=== PATIENT | female | born 1990 | race Caucasian/White ===

== ENCOUNTER → 2019-09-04 11:24 | Outpatient (CLI) | payer OTHER, SELFPAY ==
[2019-09-04 11:07] VITALS: BMI 25.9
--- NOTE | 2019-09-04 11:25 | RAD_ITS ---
STUDY: X-RAY - CERVICAL SPINE REASON FOR EXAM: Female, 28 years old. Neck pain TECHNIQUE: 5 view(s) of the cervical spine were obtained. COMPARISON: None FINDINGS: Normal anterior atlantoaxial articulation. Normal odontoid process. Normal cervical lordosis. Normal vertebral bodies and endplates. Normal disc space heights. Normal visualized intervertebral neuroforamina. The soft tissue structures are unremarkable. There is no demonstrated fracture of the cervical spine. RAD/Cerv Spine 4 or 5 Views IMPRESSION: Normal x-ray examination of the visualized cervical spine. Electronically Signed: Quirino Leonard MD at 11:43 EDT , Service support ,
== END ==
PROVIDERS: PCP Internal Medicine; Referring Provider Physician Assistant; Visit Provider Physician Assistant
DX: S16.1XXA Strain of muscle, fascia and tendon at neck level, initial encounter (principal); M54.12 Radiculopathy, cervical region
CPT/HCPCS: 72050

== ENCOUNTER 2019-09-18 08:56 | Outpatient (RCR) | payer OTHER, SELFPAY ==
[2019-09-04 11:07] VITALS: BMI 25.9
--- NOTE | 2019-09-18 15:05 | HP.PTEVAL ---
Patient's Visit Information AILYN RUSHING is a 28 year old F referred to Physical Therapy by CHAN Talley with a diagnosis of CERVICAL STRAIN,CERVICAL RADICULOPATHY,TRAPEZIUS/HAND STRAIN,EPICONDYLITIS. Date of Evaluation: 09/18/19 Physical Therapist: Dale Coleman, PT, Cert MDT, OCS - Visit Plan Frequency: 3x /Week Duration: 4 Weeks Plan: PT INTERVENTIONS MODALTIES PAIN RELIEVIE NEEDED,CERVICAL POSTURAL EX'S ,VERONICA EX'S ,RTIGHT RTC/SCAPULAR STRENGTHENING,MANUAL THERAPY - Subjective Subjective: This 28 y/o female presenst to physical therapy with cervical strain,cervical radiculopathy ,trapezius strain ,right lateral epicondlylitis and hand strain. Patient injuryed at work 08/29/19 on left side of bed on side rails and grabbed patient lifting underarms with patient weighing 300 #'s caused increase pain right neck arm. Patient went to [facility] cervical spine - and recommended ibrophrin and predisone 7 days.. Location right shoulder and cervical spine UT.Pateint symptoms hand and elbow feeling better but increase with activity.Intially had parathesia in fingers but better.If overuse shoulder burning . Patient has RICO,denies tinnutus/nausea. Patient has difficulty sleeping uncomfortable. Pain is described as ache. Aggraveting lifting ,flexion cervical spine ,siting,some driving ,housework tasks and job demands. 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 Patient symptoms affect QOL and job demands. Patient symptoms QOL. SOCIAL: single 1children. VOCATION: [employer] LOC[employer]NA[employer] - Pain Right Neck Pain Intensity (Out of 10): 4 Pain Intensity Range: 10 Bilateral Shoulder Pain Intensity (Out of 10): 4 Pain Intensity Range: 10 - Objective POSTURE: mild foward posture. PALAPTION: tender anterior AC ligaments ,long head bicep. NEURO: denies parathesia/tingling,reflexes 2/3 C5-6-7. CERVICAL ROM: flexion min loss ,extension min loss,lateral flexion/rotation min loss ,retraction min loss pain scapular,protrusion WFL. AROM: shoulder flexion/abduction 170 degrees,ER 90 ,IR T11,patient has popping right shoulder with certain movements. MMT: RTC 4-/5,DELTOID 4-/5,biceps 4/5,triceps 4/5,wrist flexors /extensors 4/5. SOFTWARE [employer] STRENGTH: 40# R ,L 50# - Special Tests C/S Radiculapathy - Left Upper limb tension test: Negative C/S Radiculapathy - Right Upper limb tension test: Negative C/S Radiculapathy - Left Spurlings: Negative C/S Radiculapathy - Right Spurlings: Positive C/S Radiculapathy - Left Cervical distraction: Negative C/S Radiculapathy - Right Cervical distraction: Negative C/S Radiculapathy - Left Relief test: Negative C/S Radiculapathy - Right Relief test: Negative Sharp Claudia: Negative Vertebral Artery Test: Negative Alar Ligament Test: Negative Cervical Sitting: Protrusion - Mechanical Response: No effect Cervical Sitting: Protrusion - Symptoms During Testing: No effect Cervical Sitting: Protrusion - Symptoms After Testing: No effect Cervical Sitting: Retraction - Mechanical Response: No effect Cervical Sitting: Retraction - Symptoms During Testing: Increases Cervical Sitting: Retraction - Symptoms After Testing: No worse Cervical Sitting: Retraction-Extension - Mechanical Response: No effect Cerv Sitting: Retraction-Extension - Symptoms During Testing: Increases Cerv Sitting: Retraction-Extension - Symptoms After Testing: No worse Cervical Sitting: Sidebend Right - Mechanical Response: No effect Cervical Sitting: Sidebend Right - Symptoms During Testing: No effect Cervical Sitting: Sidebend Right - Symptoms After Testing: No effect Comments:: STRETCHING Cervical Sitting: Sidebend Left - Mechanical Response: No effect Cervical Sitting: Sidebend Left - Symptoms During Testing: No effect Cervical Sitting: Sidebend Left - Symptoms After Testing: No effect Comments:: STRETCHING Cervical Sitting: Rotation Right - Mechanical Response: No effect Cervical Sitting: Rotation Right - Symptoms During Testing: No effect Cervical Sitting: Rotation Right - Symptoms After Testing: No effect Cervical Sitting: Rotation Left - Mechanical Response: No effect Cervical Sitting: Rotation Left - Symptoms During Testing: No effect Cervical Sitting: Rotation Left - Symptoms After Testing: No effect Cervical Sitting: Flexion - Mechanical Response: No effect Cervical Sitting: Flexion - Symptoms During Testing: No effect Cervical Sitting: Flexion - Symptoms After Testing: No effect R Shoulder External Rotation Lag Test - RC Tear: Negative R Shoulder Supine Impingement Test - RC Tear: Negative R Shoulder Drop Sign - IS Test: Positive R Shoulder Empty Can - SS: Positive R Shoulder Belly Press - SupScap: Negative R Shoulder Neer - Impingement: Negative R Shoulder Cardenas Dontae - Impingement: Positive R Shoulder Biceps Load Test - Labrum: Negative R Shoulder Apprehension Test - Anterior Instability: Negative R Shoulder Speeds Test - Labrum/Biceps: Negative - Goals Goal 1:: Independant with HEP Goal Time Frame: 4-6 Weeks Goal 2:: Improve posture for job demands Goal Time Frame: 4-6 Weeks Goal 3:: Decrease right shoulder and neck pain by 50% or> to improve functionm and job demands. Goal Time Frame: 4-6 Weeks Goal 4:: Patient increase strength of right shoulder by 4/5 to improve function and RTW Goal Time Frame: 4-6 Weeks Goal 5:: Patient improve neck owestry score by 5 points or > to RTW and QOL. Goal Time Frame: 4-6 Weeks - Rehabilitation Potential Physical Therapy Diagnosis: This patient injuried right shoulder ,arm and cervical spine lifting a patient that was got in rail caused pain cervical spine and right shoulder with weakness right shoulder ,decrease ROM cervical impairs ability to peform job demands and and housework tasks ,lateral elboe and hand improving Rehabilitation Potential: Good - Anticipated Interventions Patient/Client Instruction: Educate patient on: Condition, Plan of Care For the Purpose of:: To decrease pain, To increase ROM, To improve muscle performance and motor function, To improve ability to perform ADL's, To increase tolerance to activity/condition/position, To improve performance and independence with ADL's, To improve ability of physical actions for home/community/work/leisure, To improve health of tissue, To decrease soft tissue restriction, To increase flexibility/ROM, To reduce risk of recurrence Therapeutic Exercise to Include: Strength training, Postural training, Flexibilty training, Active ROM, Veronica Exercises, Scapular Strength/Stabilization Comment: RTC For the Purpose of:: To decrease pain, To increase ROM, To improve muscle performance and motor function, To improve ability to perform ADL's, To increase tolerance to activity/condition/position, To improve ability of physical actions for home/community/work/leisure, To decrease soft tissue restriction, To increase flexibility/ROM, To reduce risk of recurrence, To improve ability to perform tasks related to life management TENS: Yes IF ES: Yes Cryotherapy (ice pack, ice massage): Yes Thermo therapy (hot pack): Yes Ultrasound (thermal/non thermal): Yes For the Purpose of:: To decrease pain, To decrease swelling/inflammation, To improve nutrient delivery to tissue, To increase oxygenation perfusion, To improve health of tissue, To decrease soft tissue restriction, To increase flexibility/ROM Thank you for the opportunity to evaluate your patient. For Medicare and Medicare HMO plans, please review the plan of care and approve it. It will need to be FAXED BACK to us at [phone] for Medicare purposes. For Medicare only, by signing this I certify the plan of care. Please let me know if there are questions or concerns regarding this plan of care. Physician Signature: Date:
--- NOTE | 2019-10-25 13:59 | HP.PTDCNRP_ITS ---
AILYN RUSHING was seen in my office for initial evaluation on 09/18/19. The following Plan of Care was established for this patient: Initial Frequency: 3x /Week Initial Duration: 4 Weeks Patient/Client Instruction: Educate patient on: Condition, Plan of Care For the Purpose of:: To decrease pain, To increase ROM, To improve muscle performance and motor function, To improve ability to perform ADL's, To increase tolerance to activity/condition/position, To improve performance and independence with ADL's, To improve ability of physical actions for home/community/work/leisure, To improve health of tissue, To decrease soft tissue restriction, To increase flexibility/ROM, To reduce risk of recurrence Therapeutic Exercise to Include: Strength training, Postural training, Flexibilty training, Active ROM, James Exercises, Scapular Strength/Stabiliz ation For the Purpose of:: To decrease pain, To increase ROM, To improve muscle performance and motor function, To improve ability to perform ADL's, To increase tolerance to activity/condition/position, To improve ability of physical actions for home/community/work/leisure, To decrease soft tissue restriction, To increase flexibility/ROM, To reduce risk of recurrence, To improve ability to perform tasks related to life management TENS: Yes IF ES: Yes Cryotherapy (ice pack, ice massage): Yes Thermo therapy (hot pack): Yes Ultrasound (thermal/non thermal): Yes For the Purpose of:: To decrease pain, To decrease swelling/inflammation, To improve nutrient delivery to tissue, To increase oxygenation perfusion, To improve health of tissue, To decrease soft tissue restriction, To increase flexibility/ROM This patient was last seen in our office . Pertinent comments regarding their Physical therapy will appear below: Patient seen for PT Evaluation ,but WORK COMP not approved At this point I will be discontinuing this patient from physical therapy. I would be happy to see this patient again in the future if found appropriate by the physician. Thank you! Dale Coleman, PT, Cert MDT, OCS
== END 2019-09-18 19:00 | disposition home or self-care (01) ==
LOC: PT 08:56
PROVIDERS: PCP Internal Medicine; Referring Provider Physician Assistant; Visit Provider Physician Assistant
DX: S16.1XXD Strain of muscle, fascia and tendon at neck level, subsequent encounter (principal); S46.811D Strain of other muscles, fascia and tendons at shoulder and upper arm level, right arm, subsequent encounter; M77.11 Lateral epicondylitis, right elbow; S66.911D Strain of unspecified muscle, fascia and tendon at wrist and hand level, right hand, subsequent encounter
CPT/HCPCS: 97110; 97161

== ENCOUNTER → 2020-03-04 12:30 | Outpatient (CLI) | payer OTHER, BC, SELFPAY ==
[2019-10-02 11:22] VITALS: BMI 25.9
--- NOTE | 2020-03-04 12:37 | MRI_ITS ---
STUDY: MRI CERVICAL SPINE WITHOUT CONTRAST REASON FOR EXAM: Female, 29 years old. Cervical strain lifting injury 6 months ago neck pain right hand pain and numbness TECHNIQUE: Standardized fat and water weighted pulse sequences were obtained in the sagittal and axial planes. COMPARISON: None FINDINGS: Craniocervical junction and cervical spine are intact and aligned with normal marrow and paraspinal soft tissues. There are multilevel mild ventral discogenic degenerative changes effacing ventral CSF without cord compression. Thecal sac is patent with fully preserved dorsal CSF. Spinal cord is normal in size, shape and signal. MRI/Spine Cervical (Routine) IMPRESSION: 1. Patent canal, no neural compression. 2. Normal cord. 3. Minor age-related change. Electronically Signed: Elton Henning, at 14:55 EDT Tel , Service support ,
== END ==
PROVIDERS: PCP Internal Medicine; Referring Provider Family Medicine; Visit Provider Family Medicine
DX: S16.1XXA Strain of muscle, fascia and tendon at neck level, initial encounter (principal)
CPT/HCPCS: 72141